=== PATIENT | female | born 1960 | race Caucasian/White ===

== ENCOUNTER 2016-06-05 18:36 | Emergency (ER) | payer OTHER ==
[~2016-06-05] VITALS: Ht 170.2 cm; Wt 112.1 kg
--- OUTSIDE RECORDS SUMMARY | 2016-06-05 18:43 | XMS REPORT ---
Author Vickie Glover eClinicalWorks Address Unknown Phone Unavailable Care Team Providers Care Boat Operator Name Role Phone Vickie Saleh CP Unavailable Allergies No Known Allergies Problems Problem Type Condition Code Onset Dates Condition Status Problem Menopausal and postmenopausal disorder; undiagnosed 627.9 Active Problem Immunocompromised 279.3 Active Problem Tobacco use disorder 305.1 Active Problem Hypertension I10 Active Problem Psoriatic arthritis L40.50 Active Problem Pernicious anemia D51.0 Active Problem Pulmonary nodule 793.11 Active Problem Enlarged heart 429.3 Active Problem Neuropathy G62.9 Active Problem Osteoporosis M81.0 Active Assessment Osteoporosis M81.0 Active Assessment Neuropathy G62.9 Active Assessment Pernicious anemia D51.0 Active Assessment Encounter for screening for malignant neoplasm of cervix Z12.4 Active Assessment Psoriatic arthritis L40.50 Active Assessment Visit for screening mammogram Z12.31 Active Assessment Hypertension I10 Active Assessment Well woman exam Z01.419 Active Medications No Known Medications Procedures Procedure Coding System Code Date COMPUTER AIDED SCR CPT-4 38358 Sep 26, 2015 BILATERAL SCR MAMMO CPT-4 70261 Sep 26, 2015 Results Name Result Date Reference Range Unit Abnormality Flag Mammogram, bilateral screening Summary Purpose eClinicalWorks Submission
--- OUTSIDE RECORDS SUMMARY | 2016-06-05 18:43 | XMS REPORT ---
Author Author Vickie Saleh [employer]ClinicalWorks Address Unknown Phone Unavailable Care Team Providers Care Computer Console Operator Name Role Phone Vickie Saleh Unavailable Allergies No Known Allergies Problems Problem Type Condition ICD-9 Code Onset Dates Condition Status Problem Tobacco use disorder 305.1 Active Problem Weakness 780.79 Active Problem Psoriatic arthritis 696.0 Active Problem Osteoporosis 733.00 Active Problem Immunocompromised 279.3 Active Problem Enlarged heart 429.3 Active Problem Neuropathy 355.9 Active Problem Gait abnormality 781.2 Active Problem Psoriasis 696.1 Active Problem Elevated liver enzymes 790.5 Active Problem Hypertension; unspecified 401.9 Active Problem Pernicious anemia 281.0 Active Problem Lumbago 724.2 Active Problem Other psoriasis 696.1 Active Problem Menopausal and postmenopausal disorder; undiagnosed 627.9 Active Medications Medication Code System Code Instructions Start Date End Date Status Dosage Lyrica [facility] [address]-96 150 MG Orally Twice a day Active TAKE ONE CAPSULE BY MOUTH TWICE A DAY Results No Known Results Summary Purpose eClinicalWorks Submission
--- OUTSIDE RECORDS SUMMARY | 2016-06-05 18:43 | XMS REPORT ---
Author Author Vickie Saleh eClinicalWorks Address Unknown Phone Unavailable Care Team Providers Care Top Coater Name Role Phone Vickie Saleh CP Unavailable Allergies No Known Allergies Problems Problem Type Condition Code Onset Dates Condition Status Problem Psoriatic arthritis 696.0 Active Problem Gait abnormality 781.2 Active Problem Weakness 780.79 Active Problem Enlarged heart 429.3 Active Problem Osteoporosis 733.00 Active Problem Onychomycosis 110.1 Active Problem Elevated liver enzymes 790.5 Active Problem Neuropathy 355.9 Active Problem Immunocompromised 279.3 Active Problem Psoriasis 696.1 Active Problem Pernicious anemia 281.0 Active Problem Lumbago 724.2 Active Problem Other psoriasis 696.1 Active Problem Menopausal and postmenopausal disorder; undiagnosed 627.9 Active Problem Hypertension; unspecified 401.9 Active Problem Tobacco use disorder 305.1 Active Medications No Known Medications Results No Known Results Summary Purpose eClinicalWorks Submission
--- OUTSIDE RECORDS SUMMARY | 2016-06-05 18:43 | XMS REPORT ---
Author Author Vickie Saleh eClinicalWorks Address Unknown Phone Unavailable Care Team Providers Care Set Up Mold Technician Name Role Phone Vickie Saleh CP Unavailable Allergies No Known Allergies Problems Problem Type Condition Code Onset Dates Condition Status Problem Weakness 780.79 Active Problem Neuropathy 355.9 Active Problem Gait abnormality 781.2 Active Problem Onychomycosis 110.1 Active Problem Enlarged heart 429.3 Active Problem Pulmonary nodule 793.11 Active Problem Psoriasis 696.1 Active Problem Elevated liver enzymes 790.5 Active Problem Osteoporosis 733.00 Active Problem Immunocompromised 279.3 Active Assessment Right knee pain 719.46 Active Problem Other psoriasis 696.1 Active Assessment Pneumonia J18.9 Active Assessment Lateral meniscus tear 836.1 Active Problem Lumbago 724.2 Active Problem Menopausal and postmenopausal disorder; undiagnosed 627.9 Active Problem Hypertension; unspecified 401.9 Active Problem Tobacco use disorder 305.1 Active Problem Pernicious anemia 281.0 Active Problem Psoriatic arthritis 696.0 Active Medications No Known Medications Procedures Procedure Coding System Code Date CT CHEST W/CONTRAST CPT-4 32960 Dec 09, 2014 Results No Known Results Summary Purpose eClinicalWorks Submission
--- OUTSIDE RECORDS SUMMARY | 2016-06-05 18:44 | XMS REPORT ---
Author Vickie Glover eClinicalWorks Address Unknown Phone Unavailable Care Team Providers Care Metal Mixer Name Role Phone Vickie Saleh CP Unavailable Allergies No Known Allergies Problems Problem Type Condition Code Onset Dates Condition Status Problem Tobacco use disorder 305.1 Active Problem Enlarged heart 429.3 Active Problem Immunocompromised 279.3 Active Problem Menopausal and postmenopausal disorder; undiagnosed 627.9 Active Problem Pernicious anemia D51.0 Active Problem Hypertension I10 Active Problem Hyperlipidemia E78.5 Active Problem Osteoporosis M81.0 Active Problem Pulmonary nodule 793.11 Active Problem Psoriatic arthritis L40.50 Active Problem Neuropathy G62.9 Active Medications No Known Medications Results No Known Results Summary Purpose eClinicalWorks Submission
--- OUTSIDE RECORDS SUMMARY | 2016-06-05 18:44 | XMS REPORT ---
Author Vickie Glover [facility] eClinicalWorks Address Unknown Phone Unavailable Care Team Providers Care Corporate Claims Examiner Name Role Phone Vickie Saleh CP Unavailable Allergies, Adverse Reactions, Alerts Substance Reaction Event Type Oxycodone HCl vomiting Drug Allergy Lortab itch Drug Allergy Problems Problem Type Condition Code Onset Dates Condition Status Problem Psoriatic arthritis 696.0 Active Problem Gait abnormality 781.2 Active Problem Weakness 780.79 Active Problem Enlarged heart 429.3 Active Problem Osteoporosis 733.00 Active Problem Onychomycosis 110.1 Active Problem Elevated liver enzymes 790.5 Active Problem Neuropathy 355.9 Active Problem Immunocompromised 279.3 Active Problem Psoriasis 696.1 Active Assessment URI (upper respiratory infection) 465.9 Active Assessment Ankle pain 719.47 Active Problem Pernicious anemia 281.0 Active Problem Lumbago 724.2 Active Problem Other psoriasis 696.1 Active Problem Menopausal and postmenopausal disorder; undiagnosed 627.9 Active Problem Hypertension; unspecified 401.9 Active Problem Tobacco use disorder 305.1 Active Medications Medication Code System Code Instructions Start Date End Date Status Dosage Ibuprofen [facility] [address]-99 600 MG Orally Three times a day 1 tablet Lyrica [facility] [address]-72 150 MG Orally Twice a day take one capsule by mouth twice a day Prilosec [facility] 80360-[address]36 20 MG Orally Once a day 1 tablet Alendronate Sodium [facility] [address]-80 70 TAKE 1 TABLET ONCE A WEEK Lotrel [facility] [address]-29 5-20 MG TAKE ONE CAPSULE BY MOUTH EVERY DAY Jublia [facility] [address]-33 10 % Externally daily Feb 07, 2014 as directed Cyanocobalamin [facility] 73997237229 1,000 INJECT ONE MILLILITER UNDER THE SKIN MONTHLY Procedures Procedure Coding System Code Date OFFICE VISITEST PT CPT-4 81496 July 08, 2014 Vital Signs Date/Time: July 08, 2014 Blood Pressure Systolic 122 mm Hg Height 66 in Weight 202.1 lbs Oximetry 92 % Cardiac Monitoring Heart Rate 105 /min Temperature 98.0 F Blood Pressure Diastolic 73 mm Hg BMI 32.62 Index Results No Known Results Summary Purpose eClinicalWorks Submission
--- OUTSIDE RECORDS SUMMARY | 2016-06-05 18:44 | XMS REPORT ---
Author Author Vickie Saleh eClinicalWorks Address Unknown Phone Unavailable Care Team Providers Care Inside Sales Agent Name Role Phone Vickie Saleh CP Unavailable [...] 733.00 Active Problem Immunocompromised 279.3 Active Assessment Pulmonary nodule R91.1 Active Problem Other psoriasis 696.1 Active Problem Lumbago 724.2 Active Problem Menopausal and postmenopausal disorder; undiagnosed 627.9 Active Problem Hypertension; unspecified 401.9 Active Problem Tobacco use disorder 305.1 Active Problem Pernicious anemia 281.0 Active Problem Psoriatic arthritis 696.0 Active Medications No Known Medications Results No Known Results Summary Purpose eClinicalWorks Submission
--- OUTSIDE RECORDS SUMMARY | 2016-06-05 18:44 | XMS REPORT ---
Author Author Vickie Saleh eClinicalWorks Address Unknown Phone Unavailable Care Team Providers Care Armhole Presser Name Role Phone Vickie Saleh CP Unavailable [...]
--- OUTSIDE RECORDS SUMMARY | 2016-06-05 18:44 | XMS REPORT ---
Author Vickie Glover eClinicalWorks Address Unknown Phone Unavailable Care Team Providers Care Shrimp Pond Laborer Name Role Phone Vickie Saleh Unavailable Allergies No Known Allergies Problems Problem Type Condition ICD-9 Code Onset Dates Condition Status Problem Psoriatic [...]
--- OUTSIDE RECORDS SUMMARY | 2016-06-05 18:44 | XMS REPORT ---
Author Author Vickie Saleh eClinicalWorks Address Unknown Phone Unavailable Care Team Providers Care Online Marketing Director Name Role Phone Vickie Saleh CP Unavailable Allergies No Known Allergies Problems Problem Type Condition ICD-9 Code Onset Dates Condition Status Problem Tobacco use disorder 305.1 Active Problem Weakness 780.79 Active Problem Psoriatic arthritis 696.0 Active Problem Osteoporosis 733.00 Active Assessment Psoriasis 696.1 Active Problem Immunocompromised 279.3 Active Assessment Enlarged heart 429.3 Active Assessment Central obesity 278.1 Active Problem Enlarged heart 429.3 Active Problem Neuropathy 355.9 Active Problem Gait abnormality 781.2 Active Problem Psoriasis 696.1 Active Problem Elevated liver enzymes 790.5 Active Assessment Pernicious anemia 281.0 Active Assessment Osteoporosis 733.00 Active Assessment Psoriatic arthritis 696.0 Active Assessment Hypertension; unspecified 401.9 Active Problem Hypertension; unspecified 401.9 Active Problem Pernicious anemia 281.0 Active Assessment Well Woman Exam V72.31 Active Problem Lumbago 724.2 Active Problem Other psoriasis 696.1 Active Problem Menopausal and postmenopausal disorder; undiagnosed 627.9 Active Medications No Known Medications Procedures Procedure Coding System Code Date DEXA BONE DENSITY CPT-4 13269 Dec 23, 2013 Results Name Result Date Reference Range Unit DEXA Summary Purpose eClinicalWorks Submission
--- OUTSIDE RECORDS SUMMARY | 2016-06-05 18:44 | XMS REPORT ---
Author Vickie Glover eClinicalWorks Address Unknown Phone Unavailable Care Team Providers Care Healthcare Applications Analyst Name Role Phone Vickie Saleh CP Unavailable [...]
--- OUTSIDE RECORDS SUMMARY | 2016-06-05 18:44 | XMS REPORT ---
Author Author Vickie Saleh eClinicalWorks Address Unknown Phone Unavailable Care Team Providers Care Obiee Architect Name Role Phone Vickie Saleh CP Unavailable [...] undiagnosed 627.9 Active Medications No Known Medications Results No Known Results Summary Purpose eClinicalWorks Submission
--- OUTSIDE RECORDS SUMMARY | 2016-06-05 18:44 | XMS REPORT ---
Author Author Socrates Lama [facility] eClinicalWorks Address Unknown Phone Unavailable Care Team Providers Care Itinerant Teacher Assistant Name Role Phone Socrates Lama CP Unavailable Allergies, Adverse Reactions, Alerts Substance Reaction Event Type Oxycodone HCl vomiting Drug Allergy Lortab itch Drug Allergy Problems Problem Type Condition ICD-9 Code Onset Dates Condition Status Problem Weakness 780.79 Active Problem Neuropathy 355.9 Active Problem Gait abnormality 781.2 Active Problem Onychomycosis 110.1 Active Problem Enlarged heart 429.3 Active Problem Pulmonary nodule 793.11 Active Problem Psoriasis 696.1 Active Problem Elevated liver enzymes 790.5 Active Problem Osteoporosis 733.00 Active Problem Immunocompromised 279.3 Active Assessment Fracture of distal fibula 824.8 Active Problem Other psoriasis 696.1 Active Problem Lumbago 724.2 Active Problem Menopausal and postmenopausal disorder; undiagnosed 627.9 Active Problem Hypertension; unspecified 401.9 Active Problem Tobacco use disorder 305.1 Active Problem Pernicious anemia 281.0 Active Problem Psoriatic arthritis 696.0 Active Medications Medication Code System Code Instructions Start Date End Date Status Dosage Lyrica [facility] [address]-49 150 MG Orally Twice a day take one capsule by mouth twice a day Ibuprofen [facility] [address]-58 600 MG Orally Three times a day 1 tablet Alendronate Sodium [facility] [address]-56 70 TAKE 1 TABLET ONCE A WEEK Jublia [facility] [address]-62 10 % Externally daily Feb 07, 2014 as directed Cyanocobalamin [facility] 25148328552 1,000 INJECT ONE MILLILITER UNDER THE SKIN MONTHLY Lasix [facility] [address]-17 20 MG Orally Once a day July 20, 2014 as directed K-DUR ND 0 20 MEQ BY MOUTH DAILY July 20, 2014 one tablet Lotrel [facility] [address]-40 5-20 MG TAKE ONE CAPSULE BY MOUTH EVERY DAY Prilosec OTC [facility] 36[address]-21370 20 MG Orally Once a day 1 tablet Procedures Procedure Coding System Code Date OFFICE VISITEST PT CPT-4 86033 July 28, 2014 ANKLE XRAY 3 VIEW CPT-4 92836 July 28, 2014 Vital Signs Date/Time: July 28, 2014 Blood Pressure Systolic 142 mm Hg Height 66 in Weight 208 lbs BMI 33.57 Index Blood Pressure Diastolic 84 mm Hg Results Name Result Date Reference Range Unit Abnormality Flag X ray : Ankle, right 3 view Summary Purpose eClinicalWorks Submission
--- OUTSIDE RECORDS SUMMARY | 2016-06-05 18:44 | XMS REPORT ---
Author Vickie Glover [facility] eClinicalWorks Address Unknown Phone Unavailable Care Team Providers Care Striker Off Name Role Phone Vickie Saleh CP Unavailable Allergies, Adverse Reactions, Alerts Substance Reaction Event Type Oxycodone HCl Info Not Available Drug Allergy Lortab Info Not Available Drug Allergy Problems Problem Type Condition ICD-9 Code Onset Dates Condition Status Problem Psoriatic arthritis 696.0 Active Problem Gait abnormality 781.2 Active Problem Weakness 780.79 Active Problem Enlarged heart 429.3 Active Problem Osteoporosis 733.00 Active Problem Onychomycosis 110.1 Active Problem Elevated liver enzymes 790.5 Active Problem Neuropathy 355.9 Active Problem Immunocompromised 279.3 Active Problem Psoriasis 696.1 Active Assessment Neuropathy 355.9 Active Assessment Onychomycosis 110.1 Active Problem Pernicious anemia 281.0 Active Problem Lumbago 724.2 Active Problem Other psoriasis 696.1 Active Problem Menopausal and postmenopausal disorder; undiagnosed 627.9 Active Problem Hypertension; unspecified 401.9 Active Problem Tobacco use disorder 305.1 Active Medications Medication Code System Code Instructions Start Date End Date Status Dosage Prilosec OTC [facility] 36[address]24 20 MG Orally Once a day Active 1 tablet Jublia [facility] [address]-71 10 % Externally daily Feb 07, 2014 Active as directed Lasix [facility] [address]-54 20 MG Orally Two Times Daily Sep 28, 2013 Active 1 tablet Integra [facility] [address]-56 62.5-62.5-40-3 MG Orally Once a day Jan 17, 2014 Active 1 capsule Lotrel [facility] [address]-05 5-20 MG Active TAKE ONE CAPSULE BY MOUTH EVERY DAY Alendronate Sodium [facility] [address]-93 70 Active TAKE 1 TABLET ONCE A WEEK Fosamax [facility] 48041772375 70 Active TAKE 1 TABLET ONCE A WEEK Lipitor [facility] [address]-18 10 MG Orally Once a day Jan 03, 2014 Active 1 tablet Amlodipine Besy-Benazepril HCl [facility] 26928617877 5-20 Active TAKE ONE CAPSULE BY MOUTH DAILY Cyanocobalamin [facility] 55611049198 1,000 Active INJECT ONE MILLILITER UNDER THE SKIN MONTHLY Lyrica [facility] [address]-61 150 MG Orally Twice a day Active take one capsule by mouth twice a day Procedures Procedure Coding System Code Date OFFICE VISITEST PT CPT-4 30040 Feb 07, 2014 Vital Signs Date/Time: Feb 07, 2014 Blood Pressure Systolic 150 mm Hg Height 66 in Weight 204 lbs BMI 32.92 Index Cardiac Monitoring Heart Rate 88 /min Temperature 98.0 F Blood Pressure Diastolic 78 mm Hg Results No Known Results Summary Purpose eClinicalWorks Submission
--- OUTSIDE RECORDS SUMMARY | 2016-06-05 18:44 | XMS REPORT ---
Author Author Vickie Saleh eClinicalWorks Address Unknown Phone Unavailable Care Team Providers Care Fibre Technologist Name Role Phone Vickie Saleh Unavailable Allergies [...] Instructions Start Date End Date Status Dosage Amlodipine Besy-Benazepril HCl [facility] [address]-74 5-20 MG Orally Once a day TAKE ONE CAPSULE BY MOUTH DAILY Results No Known Results Summary Purpose eClinicalWorks Submission
--- OUTSIDE RECORDS SUMMARY | 2016-06-05 18:44 | XMS REPORT ---
Author Author Vickie Saleh eClinicalWorks Address Unknown Phone Unavailable Care Team Providers Care Manager Pacu Name Role Phone Vickie Saleh CP Unavailable Allergies No Known Allergies Problems Problem Type Condition ICD-9 Code Onset Dates Condition Status Problem Lumbago 724.2 Active Problem Tobacco use disorder 305.1 Active Problem Menopausal and postmenopausal disorder; undiagnosed 627.9 Active Problem Psoriasis 696.1 Active Problem Elevated liver enzymes 790.5 Active Problem Immunocompromised 279.3 Active Problem Weakness 780.79 Active Problem Psoriatic arthritis 696.0 Active Problem Neuropathy 355.9 Active Problem Gait abnormality 781.2 Active Assessment Enlarged heart 429.3 Active Problem Other psoriasis 696.1 Active Problem Hypertension; unspecified 401.9 Active Problem Pernicious anemia 281.0 Active Medications No Known Medications Results No Known Results Summary Purpose eClinicalWorks Submission
--- OUTSIDE RECORDS SUMMARY | 2016-06-05 18:44 | XMS REPORT ---
Author Author Vickie Saleh [facility] eClinicalWorks Address Unknown Phone Unavailable Care Team Providers Care Court Registry Officer Name Role Phone Vickie Saleh CP Unavailable Allergies No Known Allergies Problems Problem Type Condition ICD-9 Code Onset Dates Condition Status Assessment Osteoporosis 733.00 Active Problem Lumbago 724.2 Active Assessment Central obesity 278.1 Active Problem Menopausal and postmenopausal disorder; undiagnosed 627.9 Active Assessment Enlarged heart 429.3 Active Problem Tobacco use disorder 305.1 Active Problem Weakness 780.79 Active Problem Psoriatic arthritis 696.0 Active Problem Osteoporosis 733.00 Active Problem Immunocompromised 279.3 Active Assessment Hypertension; unspecified 401.9 Active Assessment Psoriatic arthritis 696.0 Active Problem Enlarged heart 429.3 Active Assessment Psoriasis 696.1 Active Problem Neuropathy 355.9 Active Problem Gait abnormality 781.2 Active Problem Psoriasis 696.1 Active Problem Elevated liver enzymes 790.5 Active Assessment Encounter for long-term (current) use of other medications V58.69 Active Assessment Pernicious anemia 281.0 Active Assessment Hyperlipidemia 272.4 Active Assessment Other psoriasis 696.1 Active Problem Hypertension; unspecified 401.9 Active Problem Pernicious anemia 281.0 Active Assessment Well Woman Exam V72.31 Active Problem Other psoriasis 696.1 Active Medications No Known Medications Procedures Procedure Coding System Code Date LIVER PROFILE CPT-4 70603 Jan 06, 2014 IRON CPT-4 89533 Jan 06, 2014 FERRITIN CPT-4 05003 Jan 06, 2014 IRON AND TIBC CPT-4 21648 Jan 06, 2014 TB TEST, Gamma Interferon CPT-4 25483 Jan 06, 2014 HEP B SURFACE Ab CPT-4 78240 Jan 06, 2014 LIPID PROFILE CPT-4 05112 Jan 06, 2014 HEPATITIS ACUTE PANL CPT-4 48201 Jan 06, 2014 OCCULT BLOOD, FECAL, IMMUNOASSAY CPT-4 33984 Jan 06, 2014 HIV1 AND HIV2 Single Test CPT-4 46075 Jan 06, 2014 Antinuclear Antibodies CPT-4 77341 Jan 06, 2014 Results Name Result Date Reference Range Unit JORDAN, Direct #[id number] Hepatitis B Surface Ab #[id number] LIPID PROFILE ----CHOL/HDL 6.8 39800043 -4.0-6.7 RATIO ----CHOLESTEROL 217 [id number] -50-200 MG/DL ----TRIGLYCERIDE 251 [id number] -30-150 MG/DL ----HDL-DIRECT 32 52305665 -45-65 MG/DL ----LDL-DIRECT 155 21082120 -0-99 MG/DL LIVER PROFILE ----ALBUMIN 4.1 11305136 -3.2-5.2 G/DL ----TOTAL PROTEIN 7.3 68901792 -5.9-8.4 G/DL ----GLOBULIN 3.2 12887203 -2.0-4.4 G/DL ----ALT/SGPT 15 60616267 -5-40 U/L ----ALK PHOS 96 [id number] -34-114 U/L ----DIRECT BILI 0.13 40724874 -0.00-0.30 MG/DL ----AST/SGOT 20 [id number] -5-40 U/L ----TOTAL BILI 0.36 50278370 -0.00-1.00 MG/DL IRON AND TIBC #[id number] Hepatitis Panel, Acute #155548 QuantiFERON In Tube ----QuantiFERON TB Gold Negative 20140106 -Negative ----QuantiFERON Criteria Comment 20140106 - ----QuantiFERON TB Ag Value 0.13 [id number] - IU/mL ----QuantiFERON Nil Value 0.12 [id number] - IU/mL ----QuantiFERON Mitogen Value 8.44 [id number] - IU/mL ----QFT TB Ag minus Nil Value 0.01 [id number] - IU/mL ----Interpretation: Comment 20140106 - HIV 1/0/2 Antibodies Panel #247021 Ferritin ----FERRITIN 9.2 33658402 -13.0-150.0 ng/ml QuantiFERON TB gold #[id number] Summary Purpose eClinicalWorks Submission
--- OUTSIDE RECORDS SUMMARY | 2016-06-05 18:44 | XMS REPORT ---
Author Author Vickie Saleh eClinicalWorks Address Unknown Phone Unavailable Care Team Providers Care Incident Handler Name Role Phone Vickie Saleh CP Unavailable [...] Active Problem Gait abnormality 781.2 Active Assessment Pneumonia 486 Active Problem Other psoriasis 696.1 Active Problem Hypertension; unspecified 401.9 Active Assessment Lung consolidation 481 Active Problem Pernicious anemia 281.0 Active Medications No Known Medications Results No Known Results Summary Purpose eClinicalWorks Submission
--- OUTSIDE RECORDS SUMMARY | 2016-06-05 18:44 | XMS REPORT ---
Author Vickie Glover eClinicalWorks Address Unknown Phone Unavailable Care Team Providers Care Paper Feeder Name Role Phone Vickie Saleh CP Unavailable [...]
--- OUTSIDE RECORDS SUMMARY | 2016-06-05 18:44 | XMS REPORT ---
Author Vickie Glover eClinicalWorks Address Unknown Phone Unavailable Care Team Providers Care Travel Guide Name Role Phone Vickie Saleh CP Unavailable [...] Problem Immunocompromised 279.3 Active Assessment Pulmonary nodule 793.11 Active Problem Other psoriasis 696.1 Active Problem Lumbago 724.2 Active Problem Menopausal and postmenopausal disorder; undiagnosed 627.9 Active Problem Hypertension; unspecified 401.9 Active Problem Tobacco use disorder 305.1 Active Problem Pernicious anemia 281.0 Active Problem Psoriatic arthritis 696.0 Active Medications No Known Medications Procedures Procedure Coding System Code Date PULMONARY FUNCTION S CPT-4 36287 August 31, 2014 Results No Known Results Summary Purpose eClinicalWorks Submission
--- OUTSIDE RECORDS SUMMARY | 2016-06-05 18:44 | XMS REPORT ---
Author Author Vickie Saleh eClinicalWorks Address Unknown Phone Unavailable Care Team Providers Care Senior Sas Developer Name Role Phone Vickie Saleh CP Unavailable [...]
--- OUTSIDE RECORDS SUMMARY | 2016-06-05 18:44 | XMS REPORT ---
Author Vickie Glover [facility] eClinicalWorks Address Unknown Phone Unavailable Care Team Providers Care Catastrophe Claims Supervisor Name Role Phone Vickie Saleh CP Unavailable Allergies No Known Allergies Problems Problem Type Condition Code Onset Dates Condition Status Problem Tobacco use disorder 305.1 Active Problem Enlarged heart 429.3 Active Problem Immunocompromised 279.3 Active Problem Pernicious anemia D51.0 Active Problem Hypertension I10 Active Problem Hyperlipidemia E78.5 Active Problem Osteoporosis M81.0 Active Problem Pulmonary nodule 793.11 Active Problem Psoriatic arthritis L40.50 Active Problem Neuropathy G62.9 Active Assessment Hyperlipidemia E78.5 Active Assessment Serum calcium elevated E83.52 Active Problem Menopausal and postmenopausal disorder; undiagnosed 627.9 Active Medications No Known Medications Procedures Procedure Coding System Code Date COMP PROFILE CPT-4 34881 Oct 09, 2015 Results Name Result Date Reference Range Unit Abnormality Flag COMPREHENSIVE CHEM PROFILE ----TOTAL PROTEIN 7.8 95842144 5.9-8.4 G/DL ----ALK PHOS 104 81764049 34-114 U/L ----GLOBULIN 3.1 48690936 2.0-4.4 G/DL ----ALBUMIN 4.7 88503497 3.2-5.2 G/DL ----CHLORIDE 96 09663239 96-108 MMOL/L ----POTASSIUM 4.5 68027416 3.3-5.1 MMOL/L ----SODIUM 140 99476411 133-145 MMOL/L ----TOTAL BILI 0.88 31337769 0.00-1.00 MG/DL ----eGFR If Non Am 104 20151009 >60 ml/min/1.73m^2 ----CALCIUM 9.2 61570692 8.7-10.3 MG/DL ----CO2 29 11471047 23-31 MMOL/L ----ALT/SGPT 28 [id number] 5-40 U/L ----AST/SGOT 39 20151009 5-40 U/L ----GLUCOSE 132 20151009 60-99 MG/DL H ----BUN 11 20151009 6-20 MG/DL ----CREATININE 0.6 20151009 0.4-1.1 MG/DL ----eGFR If Am 126 20151009 >60 ml/min/1.73m^2 Summary Purpose eClinicalWorks Submission
--- OUTSIDE RECORDS SUMMARY | 2016-06-05 18:44 | XMS REPORT ---
Author Vickie Glover eClinicalWorks Address Unknown Phone Unavailable Care Team Providers Care Placement Secretary Name Role Phone Vickie Saleh CP Unavailable Allergies No Known Allergies Problems Problem Type Condition Code Onset Dates Condition Status Problem Tobacco use disorder 305.1 Active Problem Enlarged heart 429.3 Active Problem Immunocompromised 279.3 Active Assessment Osteoporosis M81.0 Active Problem Menopausal and postmenopausal disorder; undiagnosed 627.9 Active Problem Pernicious anemia D51.0 Active Problem Hypertension I10 Active Problem Hyperlipidemia E78.5 Active Problem Osteoporosis M81.0 Active Problem Pulmonary nodule 793.11 Active Problem Psoriatic arthritis L40.50 Active Problem Neuropathy G62.9 Active Medications No Known Medications Results No Known Results Summary Purpose eClinicalWorks Submission
--- OUTSIDE RECORDS SUMMARY | 2016-06-05 18:45 | XMS REPORT ---
Author Vickie Glover [facility] [place] eClinicalWorks Address Unknown Phone Unavailable Care Team Providers Care Salad Chef Name Role Phone Vickie Saleh CP Unavailable [...] M81.0 Active Assessment Osteoporosis M81.0 Active Assessment Hypertension I10 Active Assessment Pernicious anemia D51.0 Active Assessment Neuropathy G62.9 Active Assessment Encounter for screening for malignant neoplasm of cervix Z12.4 Active Assessment Psoriatic arthritis L40.50 Active Assessment Well woman exam Z01.419 Active Medications No Known Medications Procedures Procedure Coding System Code Date COMP PROFILE CPT-4 01617 Sep 29, 2015 LIPID PROFILE CPT-4 35889 Sep 29, 2015 CBC CPT-4 07987 Sep 29, 2015 Vitamin D 25OH CPT-4 44827 Sep 29, 2015 TSH CPT-4 24722 Sep 29, 2015 VITAMIN B12 CPT-4 41991 Sep 29, 2015 Results Name Result Date Reference Range Unit Abnormality Flag LIPID PROFILE ----HDL-DIRECT 29 24200597 45-65 MG/DL L ----LDL-DIRECT 181 [id number] 0-99 MG/DL H ----CHOL/HDL 8.4 36079672 4.0-6.7 RATIO H ----CHOLESTEROL 245 99966825 50-200 MG/DL H ----TRIGLYCERIDE 233 28729948 30-150 MG/DL H TSH ----TSH 2.91 02761780 0.40-5.00 ?IU/ML CBC ----MCV 89.4 13715279 81.0-96.0 FL ----HCT 46.4 13054497 36.0-46.0 % H ----MCHC 32.3 10549653 32.0-35.0 G/DL ----MCH 28.9 19784555 27.0-33.0 PG ----EO# 0.3 29809875 0.0-0.2 X10^3/UL H ----PLT 307 19205517 130-400 X10^3 ----EO% 4.1 79364102 0.0-3.0 % H ----RDW 14.8 92058965 11.5-15.5 % ----MO# 0.7 70502562 0.1-0.6 X10^3/UL H ----MO% 10.4 88401995 1.7-9.3 % H ----LY# 2.4 47280208 1.2-3.4 X10^3/UL ----BA# 0.1 [id number] 0.0-0.1 X10^3/UL ----BA% 1.5 17156643 0.0-1.0 % H ----HGB 15.0 52206809 11.6-16.0 G/DL ----RBC 5.19 00746777 3.90-5.20 X10^6 ----MPV 10.8 64148737 8.9-12.7 FL ----WBC 6.6 23204022 4.0-10.0 X10^3/UL ----NE% 46.9 63250813 42.2-75.2 % ----NE# 3.1 74307149 1.4-6.5 X10^3/UL ----LY% 36.8 33733657 20.5-51.1 % COMPREHENSIVE CHEM PROFILE ----SODIUM 143 02583923 133-145 MMOL/L ----TOTAL BILI 0.67 84935648 0.00-1.00 MG/DL ----CHLORIDE 101 36783240 96-108 MMOL/L ----POTASSIUM 4.5 40037019 3.3-5.1 MMOL/L ----CALCIUM 10.4 62162804 8.7-10.3 MG/DL H ----AST/SGOT 55 29204703 5-40 U/L H ----CO2 27 78287257 23-31 MMOL/L ----TOTAL PROTEIN 7.7 78137636 5.9-8.4 G/DL ----eGFR If Am 126 39891965 >60 ml/min/1.73m^2 ----ALBUMIN 4.5 79626239 3.2-5.2 G/DL ----eGFR If Non Am 104 96933562 >60 ml/min/1.73m^2 ----BUN 9 51615873 6-20 MG/DL ----ALT/SGPT 36 33113613 5-40 U/L ----ALK PHOS 99 51841641 34-114 U/L ----CREATININE 0.6 31148352 0.4-1.1 MG/DL ----GLUCOSE 131 13270323 60-99 MG/DL H ----GLOBULIN 3.2 60765359 2.0-4.4 G/DL Vitamin D 25 - Hydroxy Vitamin B12 ----VITAMIN B12 491.8 14947700 211.0-946.0 pg/ml Summary Purpose eClinicalWorks Submission
--- OUTSIDE RECORDS SUMMARY | 2016-06-05 18:45 | XMS REPORT ---
Author Vickie Glover eClinicalWorks Address Unknown Phone Unavailable Care Team Providers Care Payroll Director Name Role Phone Vickie Saleh CP [...] 279.3 Active Problem Psoriasis 696.1 Active Assessment Lung consolidation 481 Active Assessment Pneumonia 486 Active Problem Pernicious anemia 281.0 Active Problem Lumbago 724.2 Active Problem Other psoriasis 696.1 Active Problem Menopausal and postmenopausal disorder; undiagnosed 627.9 Active Problem Hypertension; unspecified 401.9 Active Problem Tobacco use disorder 305.1 Active Medications No Known Medications Results No Known Results Summary Purpose eClinicalWorks Submission
--- OUTSIDE RECORDS SUMMARY | 2016-06-05 18:45 | XMS REPORT ---
Author Author Vickie Saleh eClinicalWorks Address Unknown Phone Unavailable Care Team Providers Care Printing Agent Name Role Phone Vickie Saleh CP [...] 733.00 Active Problem Immunocompromised 279.3 Active Problem Other psoriasis 696.1 Active Problem Lumbago 724.2 Active Problem Menopausal and postmenopausal disorder; undiagnosed 627.9 Active Problem Hypertension; unspecified 401.9 Active Problem Tobacco use disorder 305.1 Active Problem Pernicious anemia 281.0 Active Problem Psoriatic arthritis 696.0 Active Medications No Known Medications Results No Known Results Summary Purpose [employer] Submission
--- OUTSIDE RECORDS SUMMARY | 2016-06-05 18:45 | XMS REPORT ---
Author Author Vickie Saleh eClinicalWorks Address Unknown Phone Unavailable Care Team Providers Care Angular Developer Name Role Phone Vickie Saleh CP [...]
--- OUTSIDE RECORDS SUMMARY | 2016-06-05 18:45 | XMS REPORT ---
Author Author Vickie Saleh eClinicalWorks Address Unknown Phone Unavailable Care Team Providers Care Network Operations Specialist Name Role Phone Vickie Saleh CP Unavailable [...] Medications Results No Known Results Summary Purpose [employer] Submission
--- OUTSIDE RECORDS SUMMARY | 2016-06-05 18:45 | XMS REPORT ---
Author Author Vickie Saleh eClinicalWorks Address Unknown Phone Unavailable Care Team Providers Care Painter And Decorator Apprentice Name Role Phone Vickie Saleh CP Unavailable [...] Medications Results No Known Results Summary Purpose [employer] Submission
--- OUTSIDE RECORDS SUMMARY | 2016-06-05 18:45 | XMS REPORT ---
Author Author Vickie Saleh eClinicalWorks Address Unknown Phone Unavailable Care Team Providers Care Hot Man Name Role Phone Vickie Saleh CP Unavailable [...]
--- OUTSIDE RECORDS SUMMARY | 2016-06-05 18:45 | XMS REPORT | Continuity of Care Document ---
Author Author [facility] Organization [facility] Address Unknown Phone Unavailable Allergies Active Description Code Type Severity Reaction Onset Reported/Identified Relationship to Patient Clinical Status Yes hydrocodone bit hydrocodone bit Drug Allergy Moderate GI UPSET 07/05/2011 Yes efalizumab efalizumab Drug Allergy Severe SKIN REACTION LEG SWELLING 11/08/2014 Yes hydrocodone bit hydrocodone bit Drug Allergy Moderate GI UPSET, ITCHING 11/08/2014 Medications Problems Date Dx Coded Attending Type Code Diagnosis Diagnosed By 06/05/2012 Roc Boles MD 278.00 OBESITY, NOS 06/05/2012 Roc Boles MD 305.1 TOBACCO USE DISORDER 06/05/2012 Roc Boles MD 401.9 HYPERTENSION NOS 06/05/2012 Roc Boles MD 530.81 ESOPHAGEAL REFLUX 06/05/2012 Roc Boles MD 696.1 OTHER PSORIASIS 06/05/2012 Roc Boles MD 729.5 PAIN IN LIMB 06/05/2012 Roc Boles MD 799.02 HYPOXEMIA 06/05/2012 Roc Boles MD 823.00 FX UPPER END TIBIA-CLOSE 06/05/2012 Roc Boles MD E849.7 ACCID IN RESIDENT INSTIT 06/05/2012 Roc Boles MD E888.9 FALL NOS Procedures Code Description Performed By Performed On 79.36 OP RED-INT FIX TIB/FIBUL Roc Boles MD 06/05/2012 80.6 EXCIS KNEE SEMILUN CARTL Roc Boles MD 11/09/2014 Results Test Result Range URINALYSIS, ROUTINE - 06/05/12 07:00 UA LEUKOCYTE ESTERASE DIPSTICK NEGATIVE NEGATIVE UA NITRITE DIPSTICK NEGATIVE NEGATIVE UA PROTEIN DIPSTICK TRACE NEGATIVE UA GLUCOSE DIPSTICK NEGATIVE NEGATIVE UA KETONE DIPSTICK TRACE NEGATIVE UA UROBILINOGEN DIPSTICK NORMAL NORMAL UA BILIRUBIN DIPSTICK NEGATIVE NEGATIVE UA BLOOD DIPSTICK NEGATIVE NEGATIVE UA BACTERIA 2+ NEGATIVE UA EPITHELIAL CELLS 2+ epi/hpf 0 - 1+ UA MUCUS 4+ NEG TO 1+ UA RBC 0 rbc/hpf 0 - 3 UA VOLUME FOR EXAM 6.0 mL (12mL STD) UA WBC 0-1 wbc/hpf 0 - 5 UA SPECIFIC GRAVITY 1.024 1.015-1.025 UR PH 5.0 5.0-7.0 CBC - 06/05/12 07:25 MEAN CELL HGB 28.3 pg 27.0-33.0 MEAN CELL HGB CONCENTRATION 31.2 g/dL 32.0-37.0 MEAN CELL VOLUME 90.7 fl 80.0-100.0 RED BLOOD CELL 4.42 m/cumm 4.00-6.00 RED CELL DISTRIBUTION WIDTH 14.5 % 11.0- 15.6 WHITE BLOOD CELL 10.7 k/cumm 5.0-10.0 HEMOGLOBIN 12.5 gm/dL 12.0-16.0 HEMATOCRIT 40.1 % 37.0-47.0 PLATELET COUNT 389 k/cumm 150-400 METABOLIC PANEL, COMPREHN - 06/05/12 07:25 POTASSIUM 4.6 mmol/L 3.5-5.3 EST GFR (MDRD) > 60 mL/min > 59 ANION GAP 13 mmol/L 5-15 GLUCOSE 118 mg/dL 70-99 CALCIUM 9.8 mg/dL 8.5-10.1 BLOOD UREA NITROGEN 8 mg/dL 7-20 CREATININE 0.7 mg/dL 0.6-1.0 SODIUM 137 mmol/L 135-148 CHLORIDE 99 mmol/L 98-110 AST/SGOT 181 Units/L 10-37 ALT/SGPT 70 Units/L < 66 CARBON DIOXIDE 25 mmol/L 21-32 TOTAL PROTEIN 8.4 gm/dL 6.4-8.2 ALBUMIN 4.1 gm/dL 3.4-5.0 BILI TOTAL 0.7 mg/dL 0.0-1.0 ALKALINE PHOSPHATASE TOTAL 161 Units/L 50 -136 CBC - 06/06/12 06:40 MEAN CELL HGB 28.5 pg 27.0-33.0 MEAN CELL HGB CONCENTRATION 31.6 g/dL 32.0-37.0 MEAN CELL VOLUME 90.3 fl 80.0-100.0 RED BLOOD CELL 4.14 m/cumm 4.00-6.00 RED CELL DISTRIBUTION WIDTH 14.1 % 11.0- 15.6 WHITE BLOOD CELL 17.8 k/cumm 5.0-10.0 HEMOGLOBIN 11.8 gm/dL 12.0-16.0 HEMATOCRIT 37.4 % 37.0-47.0 PLATELET COUNT 337 k/cumm 150-400 METABOLIC PANEL, BASIC - 06/06/12 06:40 POTASSIUM 4.3 mmol/L 3.5-5.3 EST GFR (MDRD) > 60 mL/min > 59 ANION GAP 9 mmol/L 5-15 EST CrCl (CG) > 60 mL/min > 59 GLUCOSE 151 mg/dL 70-99 CALCIUM 9.4 mg/dL 8.5-10.1 BLOOD UREA NITROGEN 11 mg/dL 7-20 CREATININE 0.8 mg/dL 0.6-1.0 SODIUM 137 mmol/L 135-148 CHLORIDE 101 mmol/L 98-110 CARBON DIOXIDE 27 mmol/L 21-32 CBC - 11/08/14 09:25 MEAN CELL HGB 30.0 pg 27.0-33.0 MEAN CELL HGB CONCENTRATION 33.2 g/dL 32.0-37.0 MEAN CELL VOLUME 90.3 fl 80.0-100.0 RED BLOOD CELL 5.54 m/cumm 4.00-6.00 RED CELL DISTRIBUTION WIDTH 14.0 % 11.0- 15.6 WHITE BLOOD CELL 7.5 k/cumm 5.0-10.0 HEMOGLOBIN 16.6 gm/dL 12.0-16.0 HEMATOCRIT 50.0 % 37.0-47.0 PLATELET COUNT 253 k/cumm 150-400 Microbiology URINALYSIS, ROUTINE - 11/08/14 09:25 UA LEUKOCYTE ESTERASE DIPSTICK NEGATIVE NEGATIVE UA NITRITE DIPSTICK NEGATIVE NEGATIVE UA PROTEIN DIPSTICK NEGATIVE NEGATIVE UA GLUCOSE DIPSTICK NEGATIVE NEGATIVE UA KETONE DIPSTICK NEGATIVE NEGATIVE UA UROBILINOGEN DIPSTICK NORMAL NORMAL UA BILIRUBIN DIPSTICK NEGATIVE NEGATIVE UA BLOOD DIPSTICK NEGATIVE NEGATIVE UA SPECIFIC GRAVITY 1.005 1.015-1.025 UR PH 5.0 5.0-7.0 Microbiology METABOLIC PANEL, BASIC - 11/08/14 09:25 POTASSIUM 4.7 mmol/L 3.5-5.3 EST GFR (MDRD) > 60 mL/min > 59 ANION GAP 10 mmol/L 5-15 GLUCOSE 88 mg/dL 70-99 CALCIUM 9.2 mg/dL 8.5-10.1 BLOOD UREA NITROGEN 11 mg/dL 7-20 CREATININE 0.7 mg/dL 0.6-1.0 SODIUM 138 mmol/L 135-148 CHLORIDE 108 mmol/L 98-110 CARBON DIOXIDE 20 mmol/L 21-32 Microbiology Encounters ACCT No. Visit Date/Time Discharge Status Pt. Type Provider Facility Loc./Unit Complaint [id number] 11/09/2014 06:49:00 2014 14:50:00 DIS Outpatient Elvi DELGADILLO, [facility] W.OPRA [id number] 11/08/2014 09:00:00 2014 09:00:00 DIS Outpatient Elvi DELGADILLO, [facility] W.POA [id number] 06/05/2012 06:35:00 2012 12:44:00 DIS Inpatient Elvi DELGADILLO, [facility]Divine4TS [id number] 05/31/2012 09:56:00 2012 11:45:00 DIS Emergency Secrist Lobito VERGARA [facility] WDivineEDW
--- OUTSIDE RECORDS SUMMARY | 2016-06-05 18:45 | XMS REPORT ---
Author Author Vickie Saleh eClinicalWorks Address Unknown Phone Unavailable Care Team Providers Care Animal Researcher Name Role Phone Vickie Saleh CP Unavailable [...]
--- OUTSIDE RECORDS SUMMARY | 2016-06-05 18:45 | XMS REPORT ---
Author Vickie Glover eClinicalWorks Address Unknown Phone Unavailable Care Team Providers Care Voice Coach Name Role Phone Vickie Saleh Unavailable Allergies [...]
--- OUTSIDE RECORDS SUMMARY | 2016-06-05 18:45 | XMS REPORT ---
Author Vickie Glover eClinicalWorks Address Unknown Phone Unavailable Care Team Providers Care Applications Engineer Manufacturing Name Role Phone Vickie Saleh CP Unavailable [...] L40.50 Active Problem Neuropathy G62.9 Active Assessment Neuropathy G62.9 Active Assessment Psoriatic arthritis L40.50 Active Assessment Visit for screening mammogram Z12.31 Active Assessment Encounter for screening for malignant neoplasm of cervix Z12.4 Active Assessment Osteoporosis M81.0 Active Assessment Hypertension I10 Active Assessment Well woman exam Z01.419 Active Assessment Pernicious anemia D51.0 Active Problem Menopausal and postmenopausal disorder; undiagnosed 627.9 Active Medications No Known Medications Procedures Procedure Coding System Code Date DEXA BONE DENSITY CPT-4 18362 Jan 17, 2016 Results Name Result Date Reference Range Unit Abnormality Flag DEXA Summary Purpose eClinicalWorks Submission
--- OUTSIDE RECORDS SUMMARY | 2016-06-05 18:45 | XMS REPORT ---
Author Vickie Glover eClinicalWorks Address Unknown Phone Unavailable Care Team Providers Care National Opelint Analyst Name Role Phone Vickie Saleh CP Unavailable Allergies No Known Allergies Problems Problem Type Condition Code Onset Dates Condition Status Problem Tobacco use disorder 305.1 Active Problem Enlarged heart 429.3 Active Problem Immunocompromised 279.3 Active Assessment Hyperlipidemia E78.5 Active Problem Menopausal and postmenopausal disorder; undiagnosed 627.9 Active Problem Pernicious anemia D51.0 Active Problem Hypertension I10 Active Problem Hyperlipidemia E78.5 Active Problem Osteoporosis M81.0 Active Problem Pulmonary nodule 793.11 Active Problem Psoriatic arthritis L40.50 Active Problem Neuropathy G62.9 Active Medications Medication Code System Code Instructions Start Date End Date Status Dosage Lipitor [facility] [address]-64 20 mg Orally Once a day Oct 04, 2015 1 tablet Results No Known Results Summary Purpose eClinicalWorks Submission
--- OUTSIDE RECORDS SUMMARY | 2016-06-05 18:46 | XMS REPORT ---
Author Author Vickie Saleh eClinicalWorks Address Unknown Phone Unavailable Care Team Providers Care Enterprise Account Manager Name Role Phone Vickie Saleh CP Unavailable [...] Medications Results No Known Results Summary Purpose [employer] Submission
--- OUTSIDE RECORDS SUMMARY | 2016-06-05 18:46 | XMS REPORT ---
Author Vickie Glover [facility] eClinicalWorks Address Unknown Phone Unavailable Care Team Providers Care Ironworker Foreman Name Role Phone Vickie Saleh Unavailable Allergies [...] 733.00 Active Problem Immunocompromised 279.3 Active Assessment Knee instability 718.86 Active Problem Other psoriasis 696.1 Active Problem Lumbago 724.2 Active Problem Menopausal and postmenopausal disorder; undiagnosed 627.9 Active Problem Hypertension; unspecified 401.9 Active Problem Tobacco use disorder 305.1 Active Problem Pernicious anemia 281.0 Active Problem Psoriatic arthritis 696.0 Active Medications Medication Code System Code Instructions Start Date End Date Status Dosage Jublia [facility] 80733107927 10 Externally daily as directed Lasix [facility] [address]-30 20 MG Orally Once a day July 20, 2014 as directed Alendronate Sodium [facility] [address]-62 70 TAKE 1 TABLET ONCE A WEEK Ibuprofen [facility] [address]-20 600 MG Orally Three times a day 1 tablet K-DUR NDC 0 20 MEQ BY MOUTH DAILY July 20, 2014 one tablet Lasix NDC [address]-21 20 MG Orally Once a day as directed Lotrel [facility] [address]-17 5-20 MG TAKE ONE CAPSULE BY MOUTH EVERY DAY Prilosec OTC [facility] 32645-38528 20 MG Orally Once a day 1 tablet Cyanocobalamin [facility] 08064848035 1,000 INJECT ONE MILLILITER UNDER THE SKIN MONTHLY Lyrica [facility] 62694677638 150 TAKE ONE CAPSULE BY MOUTH TWICE A DAY K-DUR NDC 0 20 MEQ BY MOUTH DAILY one tablet Procedures Procedure Coding System Code Date OFFICE VISITEST PT CPT-4 06121 Oct 07, 2014 Vital Signs Date/Time: Oct 07, 2014 Blood Pressure Systolic 110 mm Hg Height 66 in Weight 208 lbs Oximetry 96 % Cardiac Monitoring Heart Rate 78 /min Temperature 98.1 F Blood Pressure Diastolic 70 mm Hg BMI 33.57 Index Results No Known Results Summary Purpose eClinicalWorks Submission
--- OUTSIDE RECORDS SUMMARY | 2016-06-05 18:46 | XMS REPORT ---
Author Author Vickie Saleh eClinicalWorks Address Unknown Phone Unavailable Care Team Providers Care Music Adapter Name Role Phone Vickie Saleh CP Unavailable [...]
--- OUTSIDE RECORDS SUMMARY | 2016-06-05 18:46 | XMS REPORT ---
Author Author Rodney Heath [facility] eClinicalWorks Address Unknown Phone Unavailable Care Team Providers Care Planer Offbearer Name Role Phone Rodney Heath CP Unavailable Allergies, Adverse Reactions, Alerts Substance [...] Active Problem Immunocompromised 279.3 Active Assessment Right hip pain M25.551 Active Problem Other psoriasis 696.1 Active Assessment Sacroiliac pain M53.3 Active Problem Lumbago 724.2 Active Problem Menopausal and postmenopausal disorder; undiagnosed 627.9 Active Problem Hypertension; unspecified 401.9 Active Problem Tobacco use disorder 305.1 Active Problem Pernicious anemia 281.0 Active Problem Psoriatic arthritis 696.0 Active Medications Medication Code System Code Instructions Start Date End Date Status Dosage K-DUR NDC 0 20 MEQ BY MOUTH DAILY one tablet K-DUR NDC 0 20 MEQ BY MOUTH DAILY July 20, 2014 [place] [address]-14 70 TAKE 1 TABLE[place] [address]-43 600 MG Orally Three times a day 1 tablet Lyrica ND 10807845698 150 TAKE ONE CAPSULE BY MOUTH TWICE A DAY Cyanocobalamin ND 28806279969 1,000 INJECT ONE MILLILITER UNDER THE [place] [address]88 20 MG Orally Once a day 1 tablet Fosamax ND 85932083102 70 TAKE 1 TABLET ONCE A WEEK Lasix NDC 55270166670 20 Orally Once a day as directed Amlodipine Besy-Benazepril HCl ND 65148975611 5-20 TAKE ONE CAPSULE BY MOUTH DAILY Jublteena [facility] 27457696480 10 APPLY EXTERNALLY DAILY to all toes Lotshila [facility] [address]-83 5-20 MG TAKE ONE CAPSULE BY MOUTH EVERY DAY Procedures Procedure Coding System Code Date OFFICE VISITEST PT CPT-4 54637 Feb 22, 2015 Vital Signs Date/Time: Feb 22, 2015 Blood Pressure Systolic 145 mm Hg Height 66 in Weight 211.4 lbs BMI 34.12 Index Blood Pressure Diastolic 84 mm Hg Results No Known Results Summary Purpose eClinicalWorks Submission
--- OUTSIDE RECORDS SUMMARY | 2016-06-05 18:46 | XMS REPORT ---
Author Vickie Glover eClinicalWorks Address Unknown Phone Unavailable Care Team Providers Care Web Production Assistant Name Role Phone Vickie Saleh CP Unavailable Allergies, Adverse Reactions, Alerts Substance Reaction Event Type Oxycodone HCl vomiting Drug Allergy Lortab itch Drug Allergy Problems Problem Type Condition Code Onset Dates Condition Status Problem Weakness 780.79 Active Problem Neuropathy 355.9 Active Problem Gait abnormality 781.2 Active Problem Onychomycosis 110.1 Active Assessment Pneumonia 486 Active Problem Enlarged heart 429.3 Active Problem Pulmonary nodule 793.11 Active Problem Psoriasis 696.1 Active Problem Elevated liver enzymes 790.5 Active Problem Osteoporosis 733.00 Active Problem Immunocompromised 279.3 Active Assessment Pulmonary nodule 793.11 Active Problem Other psoriasis 696.1 Active Assessment Swelling of lower extremity 729.81 Active Assessment Cough 786.2 Active Problem Lumbago 724.2 Active Problem Menopausal and postmenopausal disorder; undiagnosed 627.9 Active Problem Hypertension; unspecified 401.9 Active Problem Tobacco use disorder 305.1 Active Problem Pernicious anemia 281.0 Active Problem Psoriatic arthritis 696.0 Active Medications Medication Code System Code Instructions Start Date End Date Status Dosage Cyanocobalamin [facility] 06554665164 1,000 INJECT ONE MILLILITER UNDER THE SKIN MONTHLY Prilosec OTC [facility] [address]131 20 MG Orally Once a day 1 tablet Ibuprofen [facility] [address]-93 600 MG Orally Three times a day 1 tablet Levaquin [facility] [address]-06 500 MG Orally Once a day July 21, 2014 1 tablet Lyrica [facility] [address]-57 150 MG Orally Twice a day take one capsule by mouth twice a day Jublia [facility] [address]-64 10 % Externally daily Feb 07, 2014 as directed Alendronate Sodium [facility] [address]-64 70 TAKE 1 TABLET ONCE A WEEK Lotrel [facility] [address]-17 5-20 MG TAKE ONE CAPSULE BY MOUTH EVERY DAY K-DUR [facility] 0 20 MEQ BY MOUTH DAILY July 20, 2014 one tablet Lasix NDC [address]-15 20 MG Orally Once a day July 20, 2014 as directed Procedures Procedure Coding System Code Date CBC CPT-4 57268 July 20, 2014 BASIC CHEM 8 CPT-4 44227 July 20, 2014 CHEST XRAY 2 VIEW CPT-4 42894 July 20, 2014 OFFICE VISITEST PT CPT-4 81187 July 20, 2014 Vital Signs Date/Time: July 20, 2014 Blood Pressure Systolic 128 mm Hg Height 66 in Weight 208 lbs BMI 33.57 Index Blood Pressure Diastolic 60 mm Hg Results No Known Results Summary Purpose [employer]ClinicalWorks Submission
--- OUTSIDE RECORDS SUMMARY | 2016-06-05 18:46 | XMS REPORT ---
Author Author Vickie Saleh eClinicalWorks Address Unknown Phone Unavailable Care Team Providers Care Log Hauler Name Role Phone Vickie Saleh CP Unavailable [...] 279.3 Active Problem Psoriasis 696.1 Active Assessment Encounter for long-term (current) use of other medications V58.69 Active Problem Pernicious anemia 281.0 Active Problem Lumbago 724.2 Active Problem Other psoriasis 696.1 Active Problem Menopausal and postmenopausal disorder; undiagnosed 627.9 Active Problem Hypertension; unspecified 401.9 Active Problem Tobacco use disorder 305.1 Active Medications No Known Medications Procedures Procedure Coding System Code Date SGPT ALT CPT-4 99971 June 29, 2014 COMP PROFILE CPT-4 87012 June 29, 2014 DIRECT BILIRUBIN CPT-4 88538 June 29, 2014 CBC CPT-4 75063 June 29, 2014 URINE CULTURE CPT-4 93506 June 29, 2014 URINALYSIS CPT-4 03930 June 29, 2014 HEPATITIS B CORE Ab CPT-4 49899 June 29, 2014 CREATININE CPT-4 53644 June 29, 2014 T BILL CPT-4 30762 June 29, 2014 HEPATITIS ACUTE PANL CPT-4 15950 June 29, 2014 HEP B SURFACE Ab CPT-4 83199 June 29, 2014 Results No Known Results Summary Purpose eClinicalWorks Submission
--- OUTSIDE RECORDS SUMMARY | 2016-06-05 18:46 | XMS REPORT ---
Author Vickie Glover eClinicalWorks Address Unknown Phone Unavailable Care Team Providers Care Elementary School Music Teacher Name Role Phone Vickie Saleh CP Unavailable [...] Active Problem Gait abnormality 781.2 Active Problem Other psoriasis 696.1 Active Problem Hypertension; unspecified 401.9 Active Problem Pernicious anemia 281.0 Active Medications Medication Code System Code Instructions Start Date End Date Status Dosage Lyrica [facility] [id number] 150 Active TAKE ONE CAPSULE BY MOUTH TWICE A DAY Results No Known Results Summary Purpose [employer] Submission
--- OUTSIDE RECORDS SUMMARY | 2016-06-05 18:46 | XMS REPORT ---
Author Author Vickie Saleh eClinicalWorks Address Unknown Phone Unavailable Care Team Providers Care Food Service Sales Representatives Name Role Phone Vickie Saleh CP Unavailable [...] System Code Date CT CHEST W/CONTRAST CPT-4 60872 July 08, 2014 Results No Known Results Summary Purpose eClinicalWorks Submission
--- OUTSIDE RECORDS SUMMARY | 2016-06-05 18:46 | XMS REPORT ---
Author Vickie Glover eClinicalWorks Address Unknown Phone Unavailable Care Team Providers Care Coal Equipment Operator Name Role Phone Vickie Salhe CP Unavailable Allergies No Known Allergies Problems [...]
--- OUTSIDE RECORDS SUMMARY | 2016-06-05 18:46 | XMS REPORT ---
Author Author Vickie Saleh eClinicalWorks Address Unknown Phone Unavailable Care Team Providers Care Order Picker/Assembler Name Role Phone Vickie Saleh CP Unavailable [...] Medications Results No Known Results Summary Purpose [employer]Works Submission
--- OUTSIDE RECORDS SUMMARY | 2016-06-05 18:46 | XMS REPORT ---
Author Author Vickie Saleh eClinicalWorks Address Unknown Phone Unavailable Care Team Providers Care Windows Application Developer Name Role Phone Vickie Saleh CP [...]
--- OUTSIDE RECORDS SUMMARY | 2016-06-05 18:46 | XMS REPORT ---
Author Vickie Glover eClinicalWorks Address Unknown Phone Unavailable Care Team Providers Care Environmental Services Aide Name Role Phone Vickie Saleh CP Unavailable [...] G62.9 Active Problem Osteoporosis M81.0 Active Assessment Visit for screening mammogram Z12.31 Active Assessment Osteoporosis M81.0 Active Assessment Hypertension I10 Active Assessment Pernicious anemia D51.0 Active Assessment Neuropathy G62.9 Active Assessment Encounter for screening for malignant neoplasm of cervix Z12.4 Active Assessment Psoriatic arthritis L40.50 Active Assessment Well woman exam Z01.419 Active Medications Medication Code System Code Instructions Start Date End Date Status Dosage Amlodipine Besy-Benazepril HCl [facility] [id number] 5-20 TAKE ONE CAPSULE BY MOUTH DAILY Stelara [facility] [address]-00 not defined K-DUR NDC 0 20 MEQ BY MOUTH DAILY one tablet Fosamax [facility] [id number] 70 TAKE 1 TABLET ONCE A WEEK Alendronate Sodium [facility] [address]-76 70 TAKE 1 TABLET ONCE A WEEK Cyanocobalamin [facility] 14152998013 1,000 Injection Once a day inject one milliliter under the skin monthly Lyrica [facility] [id number] 150 TAKE ONE CAPSULE BY MOUTH TWICE A DAY Lotrel [facility] [address]-86 5-20 MG TAKE ONE CAPSULE BY MOUTH EVERY DAY Prilosec OTC [facility] [address]72 20 MG Orally Once a day 1 tablet Lasix [facility] 79426919802 20 TAKE ONE TABLET BY MOUTH DAILY Ibuprofen [facility] [address]-19 600 MG Orally Three times a day 1 tablet Jublia [facility] 99656553718 10 APPLY EXTERNALLY 2 DROPS ON BIG TOES AND 1 DROP ON REMAINING 8 TOES DCAILY Procedures Procedure Coding System Code Date PREV MED SEREST 40 CPT-4 31585 Sep 26, 2015 Vital Signs Date/Time: Sep 26, 2015 Temperature 97.5 F Height 66 in Weight 217 lbs BMI 35.02 Index Oximetry 95 % Cardiac Monitoring Heart Rate 88 /min Results No Known Results Summary Purpose eClinicalWorks Submission
--- OUTSIDE RECORDS SUMMARY | 2016-06-05 18:46 | XMS REPORT ---
Author Vickie Glover eClinicalWorks Address Unknown Phone Unavailable Care Team Providers Care Players Club Representative Name Role Phone Vickie Saleh CP Unavailable [...]
--- OUTSIDE RECORDS SUMMARY | 2016-06-05 18:46 | XMS REPORT ---
Author Vickie Glover eClinicalWorks Address Unknown Phone Unavailable Care Team Providers Care Steward/Stewardess Economy Class Name Role Phone Vickie Saleh Unavailable Allergies [...] Medications Results No Known Results Summary Purpose [employer] Submission
--- OUTSIDE RECORDS SUMMARY | 2016-06-05 18:46 | XMS REPORT ---
Author Vickie Glover eClinicalWorks Address Unknown Phone Unavailable Care Team Providers Care Career Development Engineer Name Role Phone Vickie Saleh CP Unavailable [...] use of other medications V58.69 Active Assessment Other psoriasis 696.1 Active Problem Pernicious anemia 281.0 Active Problem Lumbago 724.2 Active Problem Other psoriasis 696.1 Active Problem Menopausal and postmenopausal disorder; undiagnosed 627.9 Active Problem Hypertension; unspecified 401.9 Active Problem Tobacco use disorder 305.1 Active Medications No Known Medications Results No Known Results Summary Purpose eClinicalWorks Submission
--- OUTSIDE RECORDS SUMMARY | 2016-06-05 18:46 | XMS REPORT ---
Author Vickie Glover eClinicalWorks Address Unknown Phone Unavailable Care Team Providers Care Training And Development Rep Name Role Phone Vickie Saleh Unavailable Allergies [...] 733.00 Active Problem Immunocompromised 279.3 Active Assessment Lateral meniscus tear 836.1 Active Problem Other psoriasis 696.1 Active Problem Lumbago 724.2 Active Problem Menopausal and postmenopausal disorder; undiagnosed 627.9 Active Problem Hypertension; unspecified 401.9 Active Problem Tobacco use disorder 305.1 Active Problem Pernicious anemia 281.0 Active Problem Psoriatic arthritis 696.0 Active Medications No Known Medications Results No Known Results Summary Purpose eClinicalWorks Submission
--- OUTSIDE RECORDS SUMMARY | 2016-06-05 18:46 | XMS REPORT ---
Author Author Vickie Saleh eClinicalWorks Address Unknown Phone Unavailable Care Team Providers Care Office Rn Name Role Phone Vickie Saleh CP Unavailable [...] Start Date End Date Status Dosage Jublia [facility] [id number] 10 APPLY EXTERNALLY DAILY to all toes Results No Known Results Summary Purpose eClinicalWorks Submission
--- OUTSIDE RECORDS SUMMARY | 2016-06-05 18:46 | XMS REPORT ---
Author Vickie Glover eClinicalWorks Address Unknown Phone Unavailable Care Team Providers Care Plug Making Operator Name Role Phone Vickie Saleh Unavailable [...] Active Problem Pernicious anemia 281.0 Active Assessment Pernicious anemia 281.0 Active Problem Lumbago 724.2 Active Problem Other psoriasis 696.1 Active Problem Menopausal and postmenopausal disorder; undiagnosed 627.9 Active Medications Medication Code System Code Instructions Start Date End Date Status Dosage Integra [facility] [address]-38 62.5-62.5-40-3 MG Orally Once a day Jan 17, 2014 Active 1 capsule Results No Known Results Summary Purpose eClinicalWorks Submission
--- OUTSIDE RECORDS SUMMARY | 2016-06-05 18:46 | XMS REPORT ---
Author Author Vickie Saleh eClinicalWorks Address Unknown Phone Unavailable Care Team Providers Care Interior Surface Insulation Worker Name Role Phone Vickie Saleh CP Unavailable [...]
--- OUTSIDE RECORDS SUMMARY | 2016-06-05 18:46 | XMS REPORT ---
Author Author Vickie Saleh eClinicalWorks Address Unknown Phone Unavailable Care Team Providers Care Member Of Technical Staff Name Role Phone Vickie Saleh CP Unavailable [...] Medications Results No Known Results Summary Purpose [employer] Submission
--- OUTSIDE RECORDS SUMMARY | 2016-06-05 18:46 | XMS REPORT ---
Author Vickie Glover eClinicalWorks Address Unknown Phone Unavailable Care Team Providers Care Triage Clinician Name Role Phone Vickie Saleh CP Unavailable [...] Active Problem Pernicious anemia 281.0 Active Assessment Hyperlipidemia 272.4 Active Problem Lumbago 724.2 Active Problem Other psoriasis 696.1 Active Problem Menopausal and postmenopausal disorder; undiagnosed 627.9 Active Medications No Known Medications Results No Known Results Summary Purpose eClinicalWorks Submission
--- OUTSIDE RECORDS SUMMARY | 2016-06-05 18:46 | XMS REPORT ---
Author Author Vickie Saleh eClinicalWorks Address Unknown Phone Unavailable Care Team Providers Care Sewing Machinist Name Role Phone Vickie Saleh CP Unavailable [...] Medications Results No Known Results Summary Purpose [employer] Submission
--- OUTSIDE RECORDS SUMMARY | 2016-06-05 18:47 | XMS REPORT ---
Author Author Vickie Saleh eClinicalWorks Address Unknown Phone Unavailable Care Team Providers Care Cheese Factory Worker Name Role Phone Vickie Saleh CP Unavailable Allergies No Known Allergies Problems Problem Type Condition ICD-9 Code Onset Dates Condition Status Problem Lumbago 724.2 Active Assessment Osteoporosis 733.00 Active Problem Menopausal and postmenopausal disorder; undiagnosed 627.9 Active Assessment Central obesity 278.1 Active Problem Tobacco use disorder 305.1 Active Problem Weakness 780.79 Active Problem Psoriatic arthritis 696.0 Active Problem Osteoporosis 733.00 Active Problem Immunocompromised 279.3 Active Assessment Psoriatic arthritis 696.0 Active Assessment Psoriasis 696.1 Active Problem Enlarged heart 429.3 Active Assessment Enlarged heart 429.3 Active Problem Neuropathy 355.9 Active Problem Gait abnormality 781.2 Active Problem Psoriasis 696.1 Active Problem Elevated liver enzymes 790.5 Active Assessment Pernicious anemia 281.0 Active Assessment Encounter for long-term (current) use of other medications V58.69 Active Assessment Other psoriasis 696.1 Active Assessment Hypertension; unspecified 401.9 Active Problem Hypertension; unspecified 401.9 Active Problem Pernicious anemia 281.0 Active Assessment Well Woman Exam V72.31 Active Problem Other psoriasis 696.1 Active Medications No Known Medications Procedures Procedure Coding System Code Date COMP PROFILE CPT-4 83260 Dec 28, 2013 LIPID PROFILE CPT-4 50778 Dec 28, 2013 CBC CPT-4 10223 Dec 28, 2013 VITAMIN B12 CPT-4 10722 Dec 28, 2013 TSH CPT-4 86592 Dec 28, 2013 Vitamin D 25OH CPT-4 67888 Dec 28, 2013 CORTISOL TOTAL CPT-4 31694 Dec 28, 2013 Results No Known Results Summary Purpose eClinicalWorks Submission
--- OUTSIDE RECORDS SUMMARY | 2016-06-05 18:47 | XMS REPORT ---
Author Author Vickie Saleh eClinicalWorks Address Unknown Phone Unavailable Care Team Providers Care Diesel Pile Driver Operator Name Role Phone Vickie Saleh CP [...]
--- OUTSIDE RECORDS SUMMARY | 2016-06-05 18:47 | XMS REPORT ---
Author Author Vickie Saleh eClinicalWorks Address Unknown Phone Unavailable Care Team Providers Care Project Director Name Role Phone Vickie Saleh Unavailable Allergies [...] Instructions Start Date End Date Status Dosage Zithromax Z-Johnathon [facility] [address]-79 250 MG Orally Once a day Sep 28, 2013 2 tablets on the first day, then 1 tablet daily for 4 days Results No Known Results Summary Purpose eClinicalWorks Submission
--- OUTSIDE RECORDS SUMMARY | 2016-06-05 18:47 | XMS REPORT ---
Author Author Vickie Saleh eClinicalWorks Address Unknown Phone Unavailable Care Team Providers Care Professor Of Journalism Name Role Phone Vickie Saleh CP Unavailable [...] Medications Results No Known Results Summary Purpose [employer] Submission
--- OUTSIDE RECORDS SUMMARY | 2016-06-05 18:47 | XMS REPORT ---
Author Vickie Glover eClinicalWorks Address Unknown Phone Unavailable Care Team Providers Care Patching Machine Operator Name Role Phone Vickie Saleh CP [...] Active Problem Pernicious anemia 281.0 Active Assessment Enlarged heart 429.3 Active Problem Lumbago 724.2 Active Problem Other psoriasis 696.1 Active Problem Menopausal and postmenopausal disorder; undiagnosed 627.9 Active Medications No Known Medications Procedures Procedure Coding System Code Date ECHOCARDIOGRAPHY, TRANSTHORACIC, REAL-TIME WITH IMAGE DOCUMENTATION (2D), INCLUDES M-MODE RECORDING, WHEN PERFORMED, COMPLETE, WITH CPT-4 64315 Dec Results No Known Results Summary Purpose eClinicalWorks Submission
--- OUTSIDE RECORDS SUMMARY | 2016-06-05 18:47 | XMS REPORT ---
Author Vickie Glover eClinicalWorks Address Unknown Phone Unavailable Care Team Providers Care Martial Arts Instructor Name Role Phone Vickie Saleh CP Unavailable [...] Z12.31 Active Assessment Osteoporosis M81.0 Active Assessment Encounter for screening for malignant neoplasm of cervix Z12.4 Active Assessment Pulmonary nodule R91.1 Active Assessment Hypertension I10 Active Assessment Well woman exam Z01.419 Active Assessment Pernicious anemia D51.0 Active Problem Menopausal and postmenopausal disorder; undiagnosed 627.9 Active Medications No Known Medications Procedures Procedure Coding System Code Date CT CHEST W/CONTRAST CPT-4 93968 Jan 17, 2016 Results No Known Results Summary Purpose eClinicalWorks Submission
--- OUTSIDE RECORDS SUMMARY | 2016-06-05 18:47 | XMS REPORT ---
Author Author Vickie Saleh eClinicalWorks Address Unknown Phone Unavailable Care Team Providers Care Screedman Name Role Phone Vickie Saleh CP Unavailable [...] Medications Results No Known Results Summary Purpose [employer] Submission
--- OUTSIDE RECORDS SUMMARY | 2016-06-05 18:47 | XMS REPORT ---
Author Author Vickie Saleh eClinicalWorks Address Unknown Phone Unavailable Care Team Providers Care Systems Developer Name Role Phone Vickie Saleh CP [...]
--- OUTSIDE RECORDS SUMMARY | 2016-06-05 18:47 | XMS REPORT ---
Author Vickie Glover eClinicalWorks Address Unknown Phone Unavailable Care Team Providers Care Tax Professional Name Role Phone Vickie Saleh CP Unavailable [...] Problem Elevated liver enzymes 790.5 Active Assessment Mammogram Screening V76.12 Active Problem Hypertension; unspecified 401.9 Active Problem Pernicious anemia 281.0 Active Assessment Well Woman Exam V72.31 Active Problem Lumbago 724.2 Active Problem Other psoriasis 696.1 Active Problem Menopausal and postmenopausal disorder; undiagnosed 627.9 Active Medications No Known Medications Procedures Procedure Coding System Code Date COMPUTER AIDED SCR CPT-4 08650 Dec 23, 2013 BILATERAL SCR MAMMO CPT-4 77759 Dec 23, 2013 Results No Known Results Summary Purpose eClinicalWorks Submission
--- OUTSIDE RECORDS SUMMARY | 2016-06-05 18:47 | XMS REPORT ---
Author Vickie Glover eClinicalWorks Address Unknown Phone Unavailable Care Team Providers Care Senior Procurement Manager Name Role Phone Vickie Saleh CP [...] System Code Date CT CHEST W/CONTRAST CPT-4 89805 Apr 08, 2014 Results No Known Results Summary Purpose [employer] Submission
--- OUTSIDE RECORDS SUMMARY | 2016-06-05 18:48 | XMS REPORT ---
Author Author Vickie Saleh eClinicalWorks Address Unknown Phone Unavailable Care Team Providers Care Cold Press Loader Name Role Phone Vickie Saleh CP Unavailable [...]
--- OUTSIDE RECORDS SUMMARY | 2016-06-05 18:48 | XMS REPORT ---
Author Vickie Glover eClinicalWorks Address Unknown Phone Unavailable Care Team Providers Care Coke Crusher Operator Name Role Phone Vickie Saleh CP [...] Instructions Start Date End Date Status Dosage Chantix Starting [facility][NOTE 3] [address]-64 0.5 MG X 11 & 1 MG X 42 Orally Jan 01, 2016 as directed Results No Known Results Summary Purpose eClinicalWorks Submission
--- OUTSIDE RECORDS SUMMARY | 2016-06-05 18:48 | XMS REPORT ---
Author Author Vickie Saleh eClinicalWorks Address Unknown Phone Unavailable Care Team Providers Care Small Business Director Name Role Phone Vickie Saleh CP [...] Medications Results No Known Results Summary Purpose [employer] Submission
--- OUTSIDE RECORDS SUMMARY | 2016-06-05 18:48 | XMS REPORT ---
Author Author Vickie Saleh eClinicalWorks Address Unknown Phone Unavailable Care Team Providers Care Junior Legal Secretary Name Role Phone Vickie Saleh CP [...]
--- OUTSIDE RECORDS SUMMARY | 2016-06-05 18:48 | XMS REPORT ---
Author Author Vickie Saleh eClinicalWorks Address Unknown Phone Unavailable Care Team Providers Care Diazo Technician Name Role Phone Vickie Saleh CP [...]
[2016-06-05 18:50] VITALS: Ht 170.2 cm; Wt 112.1 kg
[2016-06-05] MEDS ORDERED: NORMAL SALINE 1,000 ML IV ONE ×2 (19:11→20:00)
[2016-06-05] MEDS ORDERED: ALBUTEROL/IPRATROPIUM INHAL. 2.5mg-0.5mg/3ml Neb. AEROSOL ONE (19:15)
[2016-06-05] MEDS ORDERED: LEVOFLOXACIN 750 mg IVPB 750 MG in D5W 150 ML IV ONE (19:15)
[2016-06-05] MEDS ORDERED: CEFEPIME 1 G in NORMAL SALINE 100 ML IV ONE (19:15)
[2016-06-05] MEDS ORDERED: VANCOMYCIN 1 G in NORMAL SALINE 250 ML IV ONE (19:15)
--- NOTE | 2016-06-05 19:21 | NUR ---
RT IN ROOM TO ADMINISTER NEBULIZER TREATMENT AT THIS TIME.
--- OUTSIDE RECORDS SUMMARY | 2016-06-05 19:21 | XMS REPORT | Continuity of Care Document ---
Author Author [facility] Organization [facility] Address Unknown Phone Unavailable Allergies [...] Status Pt. Type Provider Facility Loc./Unit Complaint [id number] 11/09/2014 06:49:00 2014 14:50:00 DIS Outpatient Elvi DELGADILLO, [facility] W.OPRA [id number] 11/08/2014 09:00:00 2014 09:00:00 DIS Outpatient Elvi DELGADILLO, [facility] W.POA [id number] 06/05/2012 06:35:00 2012 12:44:00 DIS Inpatient Elvi DELGADILLO, [facility] [id number] 05/31/2012 09:56:00 2012 11:45:00 DIS Emergency Secrist Lobito VERGARA [facility] WDivineEDW
--- NOTE | 2016-06-05 19:24 | NUR ---
PROVIDER MAY AT BEDSIDE AT THIS TIME.
--- NOTE | 2016-06-05 19:29 | ERPDOC ---
Departure Disposition Decision Date: Jun 05, 2016 Disposition Decision Time: 20:56 Disposition: 02 TO [facility] Impression Impression Impression: Primary Impression: Respiratory distress Additional Impressions: Hyperkalemia Hypercarbia ARF (acute renal failure) Acute renal failure type: unspecified Qualified Codes: N17.9 - Acute kidney failure, unspecified Severity: Critical Condition: Improved Seen By: Physician only Problems/Meds/Labs Reviewed?: Yes Medications reviewed and manag: Yes Follow up care ordered?: Yes Mental Status: Alert, Oriented Critical Care Note Total Time (mins): 60 Critical Care Spent: [id number] care of pt, Reviewing test results, Discuss the case w/staff, Documenting the MR, Discussion w/ family/DPOA During this visit the pt was: At Risk of Deterioration HPI - Dyspnea General Chief Complaint: Dyspnea/Respdistress Stated Complaint: UNABLE TO URINATE Time Seen by Provider: 19:10 Source: patient Exam Limitations: clinical condition HPI - Dyspnea Initial Comments 55yo woman presented to the ER tonight for trouble urinating by . Pt has been having difficulty breathing and has had low O2 sats (keeps a finger pulse ox in her purse due to h/o COPD) for the last week. Upon initial presentation, pt was obtunded with SaO2 on RA of 30%. Occurred At: home Onset/Timing: Gradual, Getting worse Duration: 1 week Severity: severe Activities at Onset: none Prior Episodes/Possible Cause: unknown cause Modifying Factors: IMPROVES WITH: antibiotics, inhaler, nebulizer, oxygen, rest , WORSE WITH: activity, coughing Associated Symptoms: cough, loss of appetite, shortness of breath, weakness Hx of Similar Symptoms: No Allergies: Coded Allergies: NKDA (Verified Allergy, Unknown, 06/05/16) Past History Unable to Obtain PMH Due to: clinical condition Past Medical History Cardiac: CAD, CHF Respiratory: COPD Review of Systems Unable to Obtain ROS Due to: clinical condition Pulmonary Respiratory: cough, dyspnea, other (hypoventilation), tachypnea All other Systems All Other Systems: Reviewed and Negative Physical Exam General General Nourishment: well nourished, well developed, appears stated age, adult , obese, acute distress General Body Habitus: disheveled Vitals and Pain First Documented Vital Signs Date Time Temp Pulse Resp B/P Pulse Ox O2 Delivery O2 Flow Rate FiO2 06/05/16 18:50 97.3 79 22 119/56 32 Room Air 06/05/16 18:55 15.00 06/05/16 19:30 30 Weight: Kilograms: Height (feet): Height (inches): Triage Pain Scale: RN VS reviewed by Provider: Yes Normal Exams: Head: Normocephalic w/o trauma Eyes: Pupils are PERRLA w/ EOMI, No scleral icterus, irritation ENMT: No facial trauma, nasal exudates, pharyngeal erythema Neck (brief) Neck: FOUND: trachea midline, NOT FOUND: adenopathy, thyromegaly Respiratory (brief) Respiratory: FOUND: equal bilaterally, rales (Throughout with marked hypoventilation), symmetrical, NOT FOUND: clear all lee, wheezes Cardiovascular (brief) Cardiac: FOUND: regular rhythm, NOT FOUND: click, gallop, murmur, pedal edema, peripheral edema, regular rate (Tachycardia), rub Capillary Refill: <2 sec Pulses: all distal extremities, equal, strong Abdomen (brief) Abdominal Brief: FOUND: bowel normo active x4, distended, soft, NOT FOUND: hepatosplenomegaly, pulsatile mass, tender Lymphatic (brief) Lymphatic Brief: NOT FOUND: adenopathy, lymphedema Musculoskeletal (brief) Musculoskeletal Brief: NOT FOUND: deformity, loss of motion, spasm, tenderness Integumentary (brief) Integumentary Brief: FOUND: pink, warm Neurologic (brief) Neurological Brief: FOUND: CN w/o gross def to obs, DTR 2/4 all extremities, gait w/o gross def to obs, motor-no gross deficits, sensory-no gross deficits, NOT FOUND: Babinski Neurologic GCS Adult : GCS Eye Opening: (4)Spontaneous GCS Verbal: (5)Oriented GCS Motor: (6)Obeys Commands Psychiatric (brief) Psychiatric Brief: FOUND: alert, oriented, NOT FOUND: normal affect (Flat) Differential Diagnoses Considering: Acute Bronchitis, Acute [place], Acute Respiratory Failure, CHF, COPD Exacerbation, Costochondritis, Croup, Influenza, Pertussis, Pneumonia, Pneumothorax, Pulmonary Edema, Pulmonary Embolus, RSV, Sinusitis, Viral Syndrome Progress Results/Orders Orders Procedure Category Date Status Time Lactate - Lactic Acid LAB 06/05/16 Complete 19:11 Blood Culture PEREZ 06/05/16 In Process 19:11 Cbc W/Auto LAB 4/12/17 Complete Diff-Reflex Manual 19:11 Cmp - Comprehensive LAB 06/05/16 Complete Metabolic 19:11 Procalcitonin LAB 06/05/16 Complete 19:11 Iv Lock (Ed Only) EDM 06/05/16 Transmitted 19:11 Oxygen Administration EDM 06/05/16 Transmitted 19:11 Nothing By Mouth (Ed EDM 06/05/16 Transmitted Only) 19:11 Blood Gas, Arterial - LAB 06/05/16 Complete ABG 19:11 Chest 1 View RAD 06/05/16 Taken 19:11 Levofloxacin 750 Mg PHA 06/05/16 Complete Ivpb (Levaquin 750 M 19:15 Cefepime (Maxipime) PHA 06/05/16 Complete 19:15 Probnp LAB 06/05/16 Complete 19:11 D-Dimer LAB 06/05/16 Complete 19:11 Troponin I W LAB 06/05/16 Complete Hemolysis Index 19:11 EKG EKG 06/05/16 Taken 19:11 Albuterol/Ipratropium PHA 06/05/16 Complete (Duoneb) 19:15 Methylprednisolone PHA 06/05/16 Complete Sod Succ (Solu-Medrol 19:15 Cardenas (Ed) EDM 06/05/16 Transmitted 19:44 Catheter Needs EL 06/05/16 Complete Assessment 19:44 Bladder Scanner (Ed) EDM 06/05/16 Transmitted 19:44 Normal Saline (Normal PHA 06/05/16 Complete Saline Iv) 20:00 UA, LAB 06/05/16 Complete Dip&Micro(Complete) & 20:31 Calcium Gluconate PHA 06/05/16 Complete (Calcium Gluconate) 20:45 Dextrose 50% Pfs PHA 06/05/16 Complete (D50w) 20:45 Insulin Regular PHA 06/05/16 Complete (Novolin R) 20:45 Lab Results Laboratory Tests Test 06/05/16 19:15 06/05/16 19:22 06/05/16 20:31 Arterial Blood pH 7.100 Arterial Blood Partial Pressure CO2 65MMHG Arterial Blood pO2 at Patient Temp 192MMHG Arterial Blood HCO3 20MEQ/L Arterial Blood Total CO2 22.2MEQ/L Arterial Blood Oxygen Saturation 99.0% Arterial Blood Base Excess -10.1MMOL/L Oxygen Delivery Method (LAB) Nrb mask, liters Blood Gas Oxygen Liter Flow 15 Blood Gas Oxygen Percent Given Blood Gas Vent Rate Blood Gas Tidal Volume ML White Blood Count 13.2T/MM3 Red Blood Count 4.15M/MM3 Hemoglobin 9.3GM/DL Hematocrit 32.5% Mean Corpuscular Volume 78.3UM3 Mean Corpuscular Hemoglobin 22.4UUG Mean Corpuscular Hemoglobin Concent 28.6GM/DL RDW Standard Deviation 46.9FL Platelet Count 185T/MM3 Mean Platelet Volume 12.5UM3 Immature Granulocyte % (Auto) % Neutrophils (%) (Auto) % Lymphocytes (%) (Auto) % Monocytes (%) (Auto) % Eosinophils (%) (Auto) % Basophils (%) (Auto) % Absolute Immature Granulocyte (auto T/MM3 Absolute Neutrophils (auto) T/MM3 Absolute Lymphocytes (auto) T/MM3 Absolute Monocytes (auto) T/MM3 Absolute Eosinophils (auto) T/MM3 Absolute Basophils (auto) T/MM3 Neutrophils % (Manual) 73.0% Band Neutrophils % 1.0% Lymphocytes % (Manual) 15.0% Reactive Lymphocytes % 4.0% Monocytes % (Manual) 7.0% Absolute Neutrophils (Manual) 9.6T/MM3 Band Neutrophils # 0.1T/MM3 Lymphocytes # (Manual) 2.0T/MM3 Reactive Lymphocytes # 0.5T/MM3 Monocytes # (Manual) 0.9T/MM3 Nucleated Red Blood Cells 2 Red Cell Morphology Comment Normal D-Dimer 231NG/ML Turbidity < 20 Sodium Level 133MEQ/L Potassium Level 8.6MEQ/L Chloride Level 95MEQ/L Carbon Dioxide Level 18MEQ/L Anion Gap 20MEQ/L Blood Urea Nitrogen 63.0MG/DL Creatinine 5.7MG/DL Glomerular Filtration Rate Calc 8 BUN/Creatinine Ratio 11RATIO Glucose Level 135MG/DL Calculated Osmolality 276MOSM/KG Calcium Level 8.0MG/DL Total Bilirubin 1.30MG/DL Icterus Index < 2 Aspartate Amino Transf (AST/SGOT) 24U/L Alanine Aminotransferase (ALT/SGPT) 25U/L Alkaline Phosphatase 103U/L Troponin I < 0.012ng/ml NJ-Sft-N-Type Natriuretic Peptide 8460PG/ML Total Protein 6.5G/DL Albumin 3.5G/DL Globulin 3.0G/DL Albumin/Globulin Ratio 1.2RATIO Plasma Lactate 1.1MMOL/L Procalcitonin 0.44NG/ML Chemistry Specimen Hemolysis 46 Urine Collection Type Cleancatch-midstream Urine Color Ramila Urine Turbidity Cloudy Urine pH 5.0 Urine Specific Meacham >=1.030 Urine Protein 2+ Urine Glucose (UA) Negative Urine Ketones Trace Urine Blood Negative Urine Nitrite Negative Urine Bilirubin 1+ Urine Urobilinogen 0.2EU/DL Urine Leukocyte Esterase Negative Urine RBC 0-1/HPF Urine WBC 0-1/HPF Urine Squamous Epithelial Cells 10-20 Urine Amorphous Urates Many Urine Bacteria 1+ Urine Hyaline Casts 0-1/LPF Urine Mucus Present Urine Culture Indicated Cult not indicated Medications Current ED Medications Sodium Chloride 1,000 ml @ 0 mls/hr Q0M ONCE IV ; Start 06/05/16 at 19:11; Stop 06/05/16 at 19:12; Status Cancel Vancomycin HCl 1 g/Sodium Chloride 250 ml @ 250 mls/hr O ONCE IV ; Start 06/05 at 19:15; Stop 06/05/16 at 20:14; Status Cancel Levofloxacin 750 mg/Dextrose/Water 150 ml @ 100 mls/hr O ONCE IV Last administered on 06/05/16 21:31; Start 06/05/16 at 19:15; Stop 06/05/16 at 20:44 ; Status DC Cefepime HCl/ Sodium Chloride (Maxipime/NS) 100 ml @ 200 mls/hr O ONCE IV Last administered on 06/05/16 20:05; Start 06/05/16 at 19:15; Stop 06/05/16 at 19:44; Status DC Albuterol/ Ipratropium (Duoneb) 3 ml O ONCE AEROSOL Last administered on 19:15; Start 06/05/16 at 19:15; Stop 06/05/16 at 19:16; Status DC Methylprednisolone Sodium Succinate 125 mg 125 mg O ONCE IV Last administered on 06/05/16 20:03; Start 06/05/16 at 19:15; Stop 06/05/16 at 19:16; Status DC Sodium Chloride 1,000 ml @ 70 mls/hr [id number] ONCE IV Last administered on 06/05 20:05; Start 06/05/16 at 20:00; Stop 06/05/16 at 21:58; Status DC Calcium Gluconate/ Sodium Chloride (Calcium Gluconate/NS) 60 ml @ 200 mls/hr O ONCE IV Last administered on 06/05/16 21:03; Start 06/05/16 at 20:45; Stop 06/05/16 at 21:02; Status DC Dextrose (D50w) 50 ml O ONCE IV Last administered on 06/05/16 21:27; Start at 20:45; Stop 06/05/16 at 20:46; Status DC Insulin Human Regular (Novolin R) 10 unit O ONCE IV Last administered on 21:29; Start 06/05/16 at 20:45; Stop 06/05/16 at 20:46; Status DC Progress Progress Upon initial assessment, called for O2 supplementation. Pts SaO2 increased to 89 % on 15L via simple facemask. Requested RT support, laurie blood gasses, and gave duoneb. Upon receiving ABG results (acidotic/hypercarbic), request bipap placement to support respirations (which were still labored and with low air movement). Obtained some hx from pt and completed PE. Pt with ARF, hyperkalemia, acidosis, hypercarbia, and in respiratory distress. Because pts Cr is 5.7, will need nephro consultation. Pt referred to [facility] for further eval and higher level of care. EKG EKG : Rate: >100 Rhythm: sinus [place]: right QRS: RBBB ST/T: non-specific changes Subtle Signs Low voltage Interpreted by: signing physician Consult/PCP Consult/PCP : Time Called: 08:30 Time of first response: 08:50 Type of discussion: Admit Discussion/PCP Discussion Details Dr. Mccann at [facility] accepts pt for txfr Xray Xray : Xray: CXR Portable Interpretation: Abnormal (Diffuse ) KATH WALKER DO Jun 05, 2016 19:29
[2016-06-05 19:30] VITALS: O2SAT 94
--- NOTE | 2016-06-05 19:30 | NUR ---
BI PAP PT IS PLACED ON BI PAP AT THIS TIME.
[2016-06-05 19:31] LABS: HCT - HEMATOCRIT 32.5 % (36-46); HGB - HEMOGLOBIN 9.3 GM/DL (12-16); MEAN CORPUSCULAR HGB 22.4 UUG (26-34); MEAN CORPUSCULAR HGB CONC(MCHC 28.6 GM/DL (31-37); MEAN CORPUSCULAR VOLUME 78.3 UM3 (80-100); MEAN PLATELET VOLUME 12.5 UM3 (9.4-12.4); RED BLOOD COUNT 4.15 M/MM3 (4.00-5.20); WBC - WHITE BLOOD COUNT 13.2 T/MM3 (4.5-11.0)
[2016-06-05 19:37] LABS: ALBUMIN 3.5 G/DL (3.5-5.0); ALBUMIN/GLOBULIN RATIO 1.2 RATIO (1.1-2.2); ALKALINE PHOSPHATASE 103 U/L (38-126); ALT (SGPT) 25 U/L (9-52); ANION GAP 20 MEQ/L (5-15); AST (SGOT) 24 U/L (14-36); BUN/CREATININE RATIO 11 RATIO (6-26); CHLORIDE 95 MEQ/L (98-107); CO2 - CARBON DIOXIDE 18 MEQ/L (22-30); CREATININE 5.7 MG/DL (0.7-1.2); GLOMERULAR FILTRATION RATE 8; GLUCOSE 135 MG/DL (65-110); SODIUM 133 MEQ/L (134-144); TOTAL PROTEIN 6.5 G/DL (6.3-8.2)
[2016-06-05 19:48] LABS: PROBNP 8460 PG/ML (0-175)
[2016-06-05 19:54] LABS: BAND NEUTROPHILS # 0.1 T/MM3; MONOCYTES # (MANUAL) 0.9 T/MM3 (0-0.8); NEUTROPHILS #(MANUAL)-ABSOLUTE 9.6 T/MM3 (1.8-7.7); NUCLEATED RED BLOOD CELLS 2; REACTIVE LYMPHOCYTES # 0.5 T/MM3 (0-0); TOTAL CELLS COUNTED 100 %
--- NOTE | 2016-06-05 20:05 | NUR ---
STATUS PT APPEARS TO BE BREATHING MUCH EASIER. CRACKLES THROUGHOUT LUNG TRIPP PERSIST. DENIES NEEDS AT THIS TIME. VSS.
[2016-06-05 20:06] LABS: POTASSIUM 8.6 MEQ/L (3.6-5)
[2016-06-05 20:13] LABS: LACTATE - LACTIC ACID 1.1 MMOL/L (0.6-2.2)
[2016-06-05] MEDS ORDERED: USTE90DI PO (20:23)
[2016-06-05] MEDS ORDERED: AMOX1TAB16 PO (20:25)
[2016-06-05] MEDS ORDERED: FURO40TA5 PO (20:25)
[2016-06-05] MEDS ORDERED: LEVO750T20 PO (20:25)
[2016-06-05] MEDS ORDERED: AMLO1CAP PO (20:27)
[2016-06-05] MEDS ORDERED: PREG75CA PO (20:27)
[2016-06-05] MEDS ORDERED: CALC-52 PO (20:29)
[2016-06-05 20:36] LABS: BLOOD, URINE NEGATIVE (NEGATIVE); COLOR,URINE AMBER (YELLOW); LEUKOCYTE ESTERASE ,URINE NEGATIVE (NEGATIVE); NITRITE,URINE NEGATIVE (NEGATIVE); UROBILINOGEN,URINE 0.2 EU/DL (NORMAL)
[2016-06-05 20:42] LABS: HYALINE CASTS, URINE 0-1 /LPF; MUCUS,URINE PRESENT; RBC,URINE 0-1 /HPF (0-3); WBC,URINE 0-1 /HPF (0-5)
[2016-06-05 20:43] LABS: BACTERIA,URINE 1+ (NEGATIVE)
[2016-06-05] MEDS ORDERED: NORMAL SALINE IV ONE (20:45)
[2016-06-05] MEDS ORDERED: CALCIUM GLUCONATE IV ONE (20:45)
[2016-06-05] MEDS ORDERED: INSULIN REGULAR 100 UNIT/ML IV ONE (20:45)
[2016-06-05] MEDS ORDERED: DEXTROSE 50% SYRINGE 50ml (Eq. 1 AMP) IV ONE (20:45)
--- NOTE | 2016-06-05 21:05 | NUR ---
REPORT CALLED TO DEVORA BAIRES AT [facility]. ADVISED THAT PT NEEDS TO RECEIVE MEDICATIONS PRIOR TO TRANSFER WITH ETA OF 2145 TO 2200. DENIES FURTHER QUESTIONS. ADVISED TO CALL BACK IF QUESTIONS ARISE.
--- NOTE | 2016-06-05 21:27 | NUR ---
DISPATCH 911 DISPATCH CONTACTED FOR PT TRANSFER.
--- NOTE | 2016-06-05 21:34 | NUR ---
EMS ARRIVED TO ER, RM 1. REPORT GIVEN TO EMS PERSONNEL AT THIS TIME. DENY QUESTIONS. PT TRANSFERRED FROM ER COT TO EMS COT, CPAP APPLIED. PT TOLERATES WELL AND MAINTAINS SPO2 91% TO 93%.
[2016-06-05 21:49] VITALS: BP 115/63; PULSE 76; RESP 20; TEMP 97.3; O2SAT 93
--- NOTE | 2016-06-05 21:49 | NUR ---
TRANSFER PT EXITS ER BY [facility] COT WITH CPAP IN PLACE FOR TRANSFER TO [facility] AT THIS TIME.
--- NOTE | 2016-06-06 08:14 | DI ---
Indication: ITS.REASON: Hypoventilation PROCEDURE: CHEST 1 VIEW: Encounter: Initial Comparison: None Findings: Scattered areas of atelectasis. No lobar consolidation, gross pleural effusion or pneumothorax. Heart size is moderate to severely enlarged. Mediastinal contours are grossly normal. Pulmonary vascularity is unremarkable. Impression: No pneumonia. Enlargement of the cardiac silhouette could be due to cardiomegaly or pericardial effusion. .
== END 2016-06-05 21:49 | disposition short-term general hospital (02) ==
LOC: ED 18:36
DX: R06.00 Dyspnea, unspecified (principal); E87.5 Hyperkalemia; R06.89 Other abnormalities of breathing; N17.9 Acute kidney failure, unspecified; I50.9 Heart failure, unspecified; J44.9 Chronic obstructive pulmonary disease, unspecified
CPT/HCPCS: 51702; 71010; 80053; 81001; 82803; 83605; 83880; 84145; 84484; 85025; 85379; 87040; 93005; 94640; 96361; 96365; 96367; 96375; 99285; J0610; J0692; J1815; J1956; J2930; J7030; J7050; J7060